=== PATIENT | male | born 1970 | race Two or more races ===

== ENCOUNTER 2018-12-27 20:50 | Emergency (ER) | payer OTHER ==
[~2018-12-27] VITALS: Ht 182.9 cm; Wt 104.3 kg
[2018-12-28] MEDS ORDERED: BACLOFEN 10 MG TAB PO ONE (01:15)
[2018-12-28] MEDS ORDERED: HYDROcodone-ACET 10/325MG TAB PO ONE (01:15)
[2018-12-28 01:16] VITALS: BP 112/79
== END 2018-12-28 01:41 | disposition home or self-care (01) ==
LOC: ER 20:53
DX: M62.838 Other muscle spasm (principal); M54.2 Cervicalgia; M54.5 Low back pain; V49.9XXA Car occupant (driver) (passenger) injured in unspecified traffic accident, initial encounter; Y93.89 Activity, other specified; Y92.488 Other paved roadways as the place of occurrence of the external cause; Y99.8 Other external cause status
CPT/HCPCS: 71111; 72040; 73501

== ENCOUNTER 2021-08-12 04:22 | Emergency (ER) | payer MEDICAID, OTHER ==
[~2021-08-12] VITALS: Ht 182.9 cm; Wt 102.1 kg
[2021-08-12 05:05] LABS: Basophils # (auto) 0.1 10 ^3/uL (0-0.2); Basophils % (auto) 0.9 % (0.0-2.0); Eosinophils # (auto) 0.1 10 ^3/uL (0-0.8); Eosinophils % (auto) 0.5 % (0.0-7.0); Hematocrit 40.4 % (41.0-53.0); Hemoglobin 13.5 g/dL (13.5-17.5); Lymphocytes # (auto) 2.1 10 ^3/uL (0.4-5.4); Lymphocytes % (auto) 15.2 % (10.0-50.0); Mean Corpuscular Hemoglobin 29.2 pg (28.0-32.0); Mean Corpuscular Hgb Conc. 33.4 g/dL (32.0-36.0); Mean Corpuscular Volume 87.5 fL (80.0-100.0); Monocytes # (auto) 0.8 10 ^3/uL (0-1.3); Monocytes % (auto) 5.6 % (0.0-12.0); Neutrophils # (auto) 10.6 10 ^3/uL (1.6-8.6); Neutrophils % (auto) 77.8 % (37.0-80.0); Red Blood Cells 4.61 10^6/uL (4.5-5.90); Red Cell Distribution Width 13.1 % (11.8-14.3); White Blood Cell 13.6 10^3/uL (4.4-10.8)
[2021-08-12 05:21] LABS: Albumin 3.7 g/dL (3.4-5.0); Potassium 4.5 mmol/L (3.5-5.1)
[2021-08-12 05:26] LABS: Bilirubin, Total 0.4 mg/dL (0.2-1.0); Total Protein 7.6 g/dL (6.4-8.2)
[2021-08-12] MEDS ORDERED: KETOROLAC TROMETH 30 MG/ML 1ML VIAL IM ONE (06:45)
[2021-08-12] MEDS ORDERED: LIDOCAINE VISCOUS 2% 15ML UD PO ONE (06:45)
[2021-08-12] MEDS ORDERED: ONDANSETRON ODT 4 MG TAB PO ONE (06:45)
[2021-08-12] MEDS ORDERED: ALUM & MAG HYDROX-SIMETH LIQ(MAALOX) 30 ML PO ONE (06:45)
[2021-08-12] MEDS ORDERED: FAMOTIDINE 20 MG TAB PO ONE (06:45)
[2021-08-12 11:41] VITALS: BP 113/72
== END 2021-08-12 11:44 | disposition home or self-care (01) ==
LOC: ER 04:22
DX: K80.20 Calculus of gallbladder without cholecystitis without obstruction (principal); N20.0 Calculus of kidney; K56.7 Ileus, unspecified
CPT/HCPCS: 36415; 71045; 74176; 76705; 80053; 83690; 85025; 96372; 99285; J1885; Q0162

== ENCOUNTER 2022-11-18 21:47 | Emergency (ER) | payer MEDICAID ==
[~2022-11-18] VITALS: Ht 182.9 cm; Wt 101.8 kg
[2022-11-18 23:34] VITALS: BP 140/85; PULSE 86; RESP 18; TEMP 97.9; O2SAT 97
[2022-11-19] MEDS ORDERED: CEPH500C PO (00:02)
== END 2022-11-19 00:19 | disposition home or self-care (01) ==
LOC: ER 21:47
DX: S90.122A Contusion of left lesser toe(s) without damage to nail, initial encounter (principal); E11.9 Type 2 diabetes mellitus without complications; I10 Essential (primary) hypertension; W22.8XXA Striking against or struck by other objects, initial encounter; Y93.89 Activity, other specified; Y92.89 Other specified places as the place of occurrence of the external cause; Y99.8 Other external cause status
CPT/HCPCS: 73630